=== PATIENT | female | born 1990 | race Caucasian/White ===

== ENCOUNTER → 2017-09-26 | Outpatient (REF) | payer OTHER ==
[2017-09-26 13:27] LABS: BASO # 0.1 10^3/uL (0.0-0.2); EOS # 0.1 10^3/uL (0.0-0.50); EOS % 1.2 % (0.0-3.0); HEMATOCRIT 37.1 % (36.0-47.0); HEMOGLOBIN 12.3 g/dl (12.0-16.0); IMMATURE GRANULOCYTE % 0.2 % (0-3.0); LYMPH # 3.3 10^3/uL (1.5-6.5); MEAN CORPUSCULAR HEMOGLOBIN 28.7 pg (27.0-33.0); MEAN CORPUSCULAR HGB CONC 33.2 g/dl (32.0-36.5); MEAN CORPUSCULAR VOLUME 86.7 fl (80.0-96.0); MONO # 0.8 10^3/uL (0.0-0.8); MONO % 9.2 % (0.0-5.0); NEUTROPHILS % 48.4 % (36.0-66.0); PLATELET COUNT, AUTOMATED 364 10^3/uL (150-450); RED BLOOD COUNT 4.28 10^6/uL (4.00-5.40); RED CELL DISTRIBUTION WIDTH 13.2 % (11.5-14.5); WHITE BLOOD COUNT 8.3 10^3/uL (4.0-10.0)
[2017-09-26 14:03] LABS: ALBUMIN 4.1 GM/DL (3.2-5.2); ALBUMIN/GLOBULIN RATIO 1.11 (1.00-1.93); ALKALINE PHOSPHATASE 51 U/L (45-117); ALT/SGPT 16 U/L (12-78); ANION GAP 4 MEQ/L (8-16); AST/SGOT 18 U/L (7-37); BILIRUBIN,TOTAL 0.5 MG/DL (0.2-1.0); BLOOD UREA NITROGEN 11 MG/DL (7-18); CALCIUM LEVEL 9.1 MG/DL (8.5-10.1); CARBON DIOXIDE LEVEL 30 MEQ/L (21-32); CHLORIDE LEVEL 105 MEQ/L (98-107); CREATININE FOR GFR 0.76 MG/DL (0.55-1.30); FREE T4 0.83 NG/DL (0.76-1.46); GLOMERULAR FILTRATION RATE > 60.0 (>60); GLUCOSE, FASTING 78 MG/DL (70-100); POTASSIUM SERUM 4.4 MEQ/L (3.5-5.1); SODIUM LEVEL 139 MEQ/L (136-145); TOTAL PROTEIN 7.8 GM/DL (6.4-8.2)
== END ==
LOC: M SFHCADAM 11:25
DX: R53.83 Other fatigue (principal)

== ENCOUNTER → 2017-10-03 | Outpatient (CLI) | payer OTHER | LOC: M RAD 15:31 | DX: R10.9 Unspecified abdominal pain (principal) ==

== ENCOUNTER → 2017-11-26 | Outpatient (CLI) | payer OTHER ==
[2017-11-26 19:14] LABS: CONTROL LINE HCG INT CTR LINE PRESENT; HCG, SERUM QUALITATIVE NEGATIVE (NEGATIVE)
== END ==
LOC: M SMT 14:39
DX: Z01.411 Encounter for gynecological examination (general) (routine) with abnormal findings (principal)
CPT/HCPCS: 84703

== ENCOUNTER → 2017-12-17 | Outpatient (REF) | payer OTHER ==
[2017-12-17 13:39] LABS: PROLACTIN 8.2 NG/ML
[2017-12-17 13:39] LABS: PROGESTERONE 0.7 NG/ML
[2017-12-17 13:51] LABS: FREE T4 0.77 NG/DL (0.76-1.46)
[2017-12-18 14:11] LABS: INSULIN LEVEL 40.5 uIU/mL (2.6-24.9)
[2017-12-21 10:13] LABS: 17 HYDROXY PROGESTERONE 29 ng/dL (.); DEHYDROEPIANDROSTERONE SULFATE 182.9 ug/dL (84.8-378.0); TESTOSTERONE FREE (DIRECT) 1.2 pg/mL (0.0-4.2)
== END ==
LOC: M LAB REF 12:43
DX: Z01.411 Encounter for gynecological examination (general) (routine) with abnormal findings (principal)
CPT/HCPCS: 83525

== ENCOUNTER 2018-01-03 10:24 | Day surgery (SDC) | payer OTHER ==
[2018-01-03] MEDS: NS 1,000 ML IV (10:34)
[2018-01-03] MEDS ORDERED: PROPOFOL 200 MG/20 ML VIAL As Ordered (11:51)
[2018-01-03] MEDS ORDERED: LIDOCAINE 2% INJ 100 MG/5 ML SDV (FOR ANES.) As Ordered (11:51)
== END 2018-01-03 12:31 | disposition home or self-care (01) ==
LOC: M OPP 10:24
DX: K64.4 Residual hemorrhoidal skin tags (principal); R10.84 Generalized abdominal pain; K62.89 Other specified diseases of anus and rectum; R10.13 Epigastric pain; R11.0 Nausea; Z96.0 Presence of urogenital implants; Z87.42 Personal history of other diseases of the female genital tract; Z80.41 Family history of malignant neoplasm of ovary; Z84.1 Family history of disorders of kidney and ureter; Z83.79 Family history of other diseases of the digestive system
CPT/HCPCS: 45378

== ENCOUNTER → 2018-01-17 | Outpatient (CLI) | payer OTHER | LOC: M ADAMS 18:24 | DX: M25.561 Pain in right knee (principal) | CPT/HCPCS: 73564 ==

== ENCOUNTER → 2018-03-29 | Outpatient (REF) | payer OTHER ==
[2018-03-29 21:19] LABS: CHLAMYDIA DNA AMPLIFICATION NEGATIVE (NEGATIVE); GC DNA AMPLIFICATION NEGATIVE (NEGATIVE)
== END ==
LOC: M SFHCADAM 19:06
DX: R10.2 Pelvic and perineal pain (principal)
CPT/HCPCS: 87591

== ENCOUNTER → 2018-05-31 | Outpatient (REF) | payer OTHER ==
[2018-05-31 19:33] LABS: BASO # 0.1 10^3/uL (0.0-0.2); BASO % 0.7 % (0.0-1.0); EOS # 0.1 10^3/uL (0.0-0.50); EOS % 1.3 % (0.0-3.0); HEMATOCRIT 39.1 % (36.0-47.0); HEMOGLOBIN 12.7 g/dl (12.0-15.5); IMMATURE GRANULOCYTE % 0.3 % (0-3.0); LYMPH # 3.6 10^3/uL (1.5-6.5); LYMPH % 35.5 % (24.0-44.0); MEAN CORPUSCULAR HGB CONC 32.5 g/dl (32.0-36.5); MEAN CORPUSCULAR VOLUME 89.3 fl (80.0-96.0); MONO # 0.8 10^3/uL (0.0-0.8); NEUTROPHILS # 5.5 10^3/uL (1.8-7.7); NEUTROPHILS % 54.2 % (36.0-66.0); PLATELET COUNT, AUTOMATED 369 10^3/uL (150-450); RED BLOOD COUNT 4.38 10^6/uL (4.00-5.40); RED CELL DISTRIBUTION WIDTH 13.2 % (11.5-14.5); WHITE BLOOD COUNT 10.2 10^3/uL (4.0-10.0)
[2018-06-03 08:51] LABS: CONTROL LINE MONO RF C INT CTR LINE PRESENT; MONO REFLEX EBV COMP NEGATIVE (NEGATIVE)
[2018-06-05 00:08] LABS: EBV VIRAL CAPSID AG IgG 42.7 U/mL (0.0-17.9)
[2018-06-05 00:08] LABS: EBV VIRAL CAPSID AG IgM <36.0 U/mL (0.0-35.9)
== END ==
LOC: M LAB REF 18:53
DX: R59.0 Localized enlarged lymph nodes (principal); R53.83 Other fatigue

== ENCOUNTER 2018-11-11 11:12 | Emergency (ER) | payer OTHER ==
[~2018-11-11] VITALS: Ht 157.5 cm; Wt 53.6 kg
[~2018-11-11 11:12] MED LIST: ACET1TAB15 PO; AUGM875T27 PO; BACT800T5 PO; FLAG500T PO; MAPA500T17 PO; MIRA3350 PO; ONDA-227 PO; OXYC1TAB23 PO; PRENTAB74 PO
[2018-11-11 11:13] VITALS: BP 102/65
[2018-11-11] MEDS ORDERED: XALA0.007 OU (11:22)
[2018-11-11] MEDS ORDERED: BACITRACIN OINT 30GM TOP ONE (11:45)
[2018-11-11] MEDS ORDERED: ADACEL/BOOSTRIX VACCINE (DIPHTH/PERTUSS/ACELL/TETANUS)0.5ML SYR (90715) IM ONE (11:45)
[2018-11-11] MEDS ORDERED: IBUP80TA PO (11:45)
[2018-11-11] MEDS ORDERED: ACETAMINOPHEN 500 MG TAB PO ONE (11:45)
== END 2018-11-11 12:08 | disposition home or self-care (01) ==
LOC: M ED 11:12
DX: S61.431A Puncture wound without foreign body of right hand, initial encounter (principal); W26.8XXA Contact with other sharp object(s), not elsewhere classified, initial encounter; Y92.018 Other place in single-family (private) house as the place of occurrence of the external cause

== ENCOUNTER 2018-12-20 13:40 | Emergency (ER) | payer OTHER ==
[~2018-12-20] VITALS: Ht 157.5 cm; Wt 55.9 kg
[~2018-12-20 13:40] MED LIST changes: +IBUP80TA PO; +XALA0.007 OU
[2018-12-20] MEDS ORDERED: KETOROLAC 30 MG/ML VIAL (J1885) IV ONE (14:00)
[2018-12-20] MEDS ORDERED: ONDANSETRON 4MG/2ML VIAL (J2405) IV ONE (14:00)
--- NOTE | 2018-12-20 14:17 | REP ---
Clinical: Flank pain. Technique: Axial noncontrast images from the lung bases to the pubic symphysis with coronal and sagittal re-formations. Comparison: 04/27/2016. Findings: Lung bases are clear. Liver, spleen, pancreas, gallbladder, bilateral adrenal glands and kidneys are normal for noncontrast evaluation. No hydroureteronephrosis, perinephric stranding, intrarenal or obstructing ureteral calculi identified. The enteric system is without obstruction or acute inflammatory process. Normal terminal ileum and appendix identified in the right lower quadrant. Pelvis demonstrates normal bladder and age-appropriate uterus/adnexa. Small amount of free fluid in the posterior cul-de-sac likely physiologic and related to menstrual cycle. No free air. No adenopathy. Abdominal aorta without aneurysm. Musculoskeletal structures are intact. Impression: No acute abdominopelvic pathology appreciated. Normal appearance to the urinary tract system. Electronically Signed by Gabriel Lopez MD 12/20/2018 02:09 P
[2018-12-20 14:23] LABS: BASO # 0.1 10^3/uL (0.0-0.2); BASO % 0.3 % (0.0-1.0); EOS # 0.1 10^3/uL (0.0-0.50); EOS % 0.6 % (0.0-3.0); HEMATOCRIT 36.6 % (36.0-47.0); HEMOGLOBIN 12.2 g/dl (12.0-15.5); LYMPH # 2.7 10^3/uL (1.5-6.5); LYMPH % 17.4 % (24.0-44.0); MEAN CORPUSCULAR HEMOGLOBIN 29.4 pg (27.0-33.0); MEAN CORPUSCULAR HGB CONC 33.3 g/dl (32.0-36.5); MEAN CORPUSCULAR VOLUME 88.2 fl (80.0-96.0); MONO # 1.2 10^3/uL (0.0-0.8); MONO % 7.6 % (0.0-5.0); NEUTROPHILS # 11.4 10^3/uL (1.8-7.7); NEUTROPHILS % 73.8 % (36.0-66.0); PLATELET COUNT, AUTOMATED 305 10^3/uL (150-450); RED BLOOD COUNT 4.15 10^6/uL (4.00-5.40); WHITE BLOOD COUNT 15.4 10^3/uL (4.0-10.0)
[2018-12-20] MEDS ORDERED: ACETAMINOPHEN 500 MG TAB PO ONE (14:30)
[2018-12-20] MEDS ORDERED: MORPHINE 4 MG/ML 1ML VIAL/SYRINGE (J2270) IV ONE (14:45)
[2018-12-20 14:46] LABS: ALBUMIN 4.1 GM/DL (3.2-5.2); ALT/SGPT 14 U/L (12-78); BILIRUBIN,DIRECT 0.1 MG/DL (0.0-0.2); BILIRUBIN,TOTAL 0.4 MG/DL (0.2-1.0); BLOOD UREA NITROGEN 14 MG/DL (7-18); CALCIUM LEVEL 9.7 MG/DL (8.5-10.1); CARBON DIOXIDE LEVEL 25 MEQ/L (21-32); CHLORIDE LEVEL 105 MEQ/L (98-107); CREATININE FOR GFR 0.98 MG/DL (0.55-1.30); GLOMERULAR FILTRATION RATE > 60.0 (>60); GLUCOSE, FASTING 88 MG/DL (70-100); LIPASE 104 U/L (73-393); POTASSIUM SERUM 3.5 MEQ/L (3.5-5.1); SODIUM LEVEL 138 MEQ/L (136-145); TOTAL PROTEIN 8.1 GM/DL (6.4-8.2)
[2018-12-20] MEDS ORDERED: CIPR-249 PO (14:51)
[2018-12-20] MEDS ORDERED: NORC1TAB7 PO (14:52)
[2018-12-20] MEDS ORDERED: ONDA4TAB6 PO (14:53)
[2018-12-20] MEDS ORDERED: cefTRIAXone SOD 1 GM in D5W MINI-BAG PLUS 50 ML IV ONE (15:00)
[2018-12-20 15:48] VITALS: BP 100/57
== END 2018-12-20 15:49 | disposition home or self-care (01) ==
LOC: M ED 13:40
DX: N10 Acute pyelonephritis (principal); Z87.448 Personal history of other diseases of urinary system; Z79.899 Other long term (current) drug therapy
CPT/HCPCS: 74176; 80048; 80076; 81001; 83690; 85025; 87088; 87186; 96365; 96375; 99284; J0696; J1885; J2270; J2405

== ENCOUNTER 2018-12-25 10:23 | Inpatient (IN) | payer OTHER ==
[~2018-12-25] VITALS: Ht 157.5 cm; Wt 55.4 kg
[~2018-12-25 10:23] MED LIST changes: +CIPR-249 PO; +NORC1TAB7 PO; +ONDA4TAB6 PO
[2018-12-25] MEDS ORDERED: IBUPROFEN 400 MG TAB PO PRN (11:00)
[2018-12-25 11:37] LABS: HEMATOCRIT 37.8 % (36.0-47.0); HEMOGLOBIN 12.3 g/dl (12.0-15.5); MEAN CORPUSCULAR HEMOGLOBIN 28.7 pg (27.0-33.0); MEAN CORPUSCULAR HGB CONC 32.5 g/dl (32.0-36.5); MEAN CORPUSCULAR VOLUME 88.1 fl (80.0-96.0); PLATELET COUNT, AUTOMATED 384 10^3/uL (150-450); RED BLOOD COUNT 4.29 10^6/uL (4.00-5.40); WHITE BLOOD COUNT 9.6 10^3/uL (4.0-10.0)
[2018-12-25] MEDS ORDERED: cefTRIAXone SOD 1 GM in D5W MINI-BAG PLUS 50 ML IV SCH (12:00)
[2018-12-25] MEDS: ACETAMINOPHEN TAB 650MG DOSE (2X325MG) PO PRN ×2 (12:05→21:48)
[2018-12-25 12:09] VITALS: BP 107/66
[2018-12-25] MEDS ORDERED: ONDANSETRON 4MG/2ML VIAL (J2405) IV PRN (12:15)
[2018-12-25] MEDS ORDERED: oxyCODONE 5MG TAB PO PRN (12:15)
[2018-12-25 12:27] LABS: ALBUMIN 3.6 GM/DL (3.2-5.2); ALT/SGPT 18 U/L (12-78); BILIRUBIN,TOTAL 0.4 MG/DL (0.2-1.0); BLOOD UREA NITROGEN 11 MG/DL (7-18); CALCIUM LEVEL 9.8 MG/DL (8.5-10.1); CARBON DIOXIDE LEVEL 27 MEQ/L (21-32); CHLORIDE LEVEL 104 MEQ/L (98-107); CREATININE FOR GFR 0.78 MG/DL (0.55-1.30); GLOMERULAR FILTRATION RATE > 60.0 (>60); GLUCOSE, FASTING 85 MG/DL (70-100); POTASSIUM SERUM 4.3 MEQ/L (3.5-5.1); SODIUM LEVEL 140 MEQ/L (136-145)
[2018-12-25 12:35] LABS: URINE PREG TEST NEGATIVE (NEGATIVE)
[2018-12-25] MEDS ORDERED: CEFD1CAP8 PO (12:36)
[2018-12-25 12:42] LABS: APPEARANCE, URINE HAZY (CLEAR); BACTERIA, URINE AUTO NEGATIVE (NEGATIVE); BILIRUBIN, URINE AUTO NEGATIVE (NEGATIVE); BLOOD, URINE BLOOD NEGATIVE (NEGATIVE); COLOR, URINE YELLOW (YELLOW); GLUCOSE, URINE (UA) AUTO NEGATIVE (NEGATIVE); KETONE, URINE AUTO NEGATIVE (NEGATIVE); LEUKOCYTE ESTERASE, URINE AUTO TRACE (NEGATIVE); NITRITE, URINE AUTO NEGATIVE (NEGATIVE); PROTEIN, URINE AUTO NEGATIVE (NEGATIVE); RBC, URINE AUTO 1 /HPF (0-3); SPECIFIC GRAVITY URINE AUTO 1.015 (1.002-1.035); SQUAMOUS EPITHELIAL CELL UR AU 7 /HPF (0-6); UROBILINOGEN, URINE AUTO 0.2 mg/dL (0.0-2.0); WBC, URINE AUTO 3 /HPF (0-3)
[2018-12-25] MEDS: NS 1,000 ML IV SCH ×2 (12:44→21:48)
[2018-12-25 12:46] LABS: C REACTIVE PROTEIN QUANTITATIV 9.57 MG/DL (0.00-0.30)
[2018-12-25 13:00] LABS: ERYTHROCYTE SEDIMENTATION RATE 84 mm/hr (0-20)
[2018-12-25 15:10] VITALS: BP 84/32
[2018-12-25] MEDS ORDERED: NS 500 ML IV ONE ×2 (15:30)
[2018-12-25 15:50] VITALS: BP 98/64
[2018-12-25] MEDS: PROMETHAZINE 25 MG TAB PO PRN (16:08)
[2018-12-25] MEDS: oxyCODONE 5MG TAB PO PRN ×2 (16:09→22:17)
[2018-12-25 17:31] VITALS: BP 114/70
--- NOTE | 2018-12-25 17:35 | REP ---
Clinical: Pyelonephritis with persistent fever. Technique: Real time arango scale and color evaluation using curved array transducer. Findings: The right kidney demonstrates mild hydronephrosis with small amounts of echogenic debris identified in the calyces consistent with the given diagnosis of pyelonephritis. The kidney demonstrates normal reniform shape, size, echogenicity and no evidence for perinephric stranding or fluid. Right kidney measures 10.9 x 6.2 x 4.8 cm. The left kidney is normal in appearance and without hydronephrosis, nephrolithiasis, cystic or renal mass lesion. No perinephric fluid collection. Left kidney measures 10.9 x 5.9 x 6.3 cm. The bladder is normal in appearance and measures 14.3 x 12.1 x 10.1 cm. Impression: Mild right-sided hydronephrosis and small amounts of debris within the calyces consistent with the given history of pyelonephritis. No obvious nephrolithiasis. Electronically Signed by Gabriel Lopez MD 12/25/2018 05:27 P
--- NOTE | 2018-12-25 17:58 | SMCUROLCON ---
Urology Consultation General Date of Consultation 12/25/18 Reason For Consultation This patient is seen for Pyelonephritis. History of Present Illness This is a 28 y/o F w/ a PMH significant for recurrent UTIs, admitted to the hospital for pyelonephritis. She started having left flank and abd pain as well as dysuria almost 1 wk ago. She came for evaluation at [facility] and was diagnosed w/ an E coli UTI. A noncontrast CT A/P at that time was unremarkable. She was sent home on cipro and noted that her symptoms continued to get worse, prompting her to go to [place] [address] A/P w/ IV contrast was done there and notable for what appeared to be lobar nephronia versus an abscess in the lef t kidney. She was sent home on cefdinir and noted that her flank pain worsened and she started developing fevers and chills. She notes that during this time her dysuria improved. Due to her worsening in symptoms she was admitted to the hospital by her PCP today. She notes that she has had pyelonephritis once before several years ago and she had a stent placed at that time. She normally gets 2-3 nonfebrile UTIs per year and they typically resolve w/ a course of oral antibiotics. She notes that what she is experiencing now is unusual for her. Past Medical History Medical History UTIs Surgical Hstory cystoscopy w/ stent placement Medications Current Medications Current Medications Acetaminophen (Tylenol Tab) 650 mg Q4HP PRN PO PAIN OR FEVER Last administered on 12/25/18at 12:05; Start 12/25/18 at 11:00 Ceftriaxone Sodium 1 gm/ Dextrose 50 ml @ 100 mls/hr Q24H IV Last administered on 12/25/18at 12:04; Start 12/25/18 at 12:00 Ibuprofen (Advil) 400 mg Q6HP PRN PO PAIN; Start 12/25/18 at 11:00; Stop 12/25/18 at 12:17; Status DC Latanoprost (Xalatan 0.005% Op Soln) 1 drop QHS OU ; Start 12/25/18 at 21:00 Ondansetron HCl (ZOFRAN INJection) 4 mg Q6HP PRN IV NAUSEA OR VOMITING Last administered on 12/25/18at 12:44; Start 12/25/18 at 12:15 Oxycodone HCl (Roxicodone, Oxyir) 5 mg Q6HP PRN PO PAIN Last administered on 12/25/18at 12:44; Start 12/25/18 at 12:15 Oxycodone HCl (Roxicodone, Oxyir) 10 mg Q6HP PRN PO SEVERE PAIN (PS 8-10) Last administered on 12/25/18at 16:09; Start 12/25/18 at 16:00 Promethazine HCl (Phenergan) 25 mg Q8HP PRN PO NAUSEA Last administered on 12/25/18at 16:08; Start 12/25/18 at 15:45 Sodium Chloride 1,000 ml @ 100 mls/hr Q10H IV Last administered on 12/25/18at 12:44; Start 12/25/18 at 12:15 Allergies Allergies: Coded Allergies: No Known Drug Allergies (Verified Allergy, Unknown, 11/11/18) Review of Systems Constitutional: Reports: Fever, Chills Skin: Denies: Rash, Lesions, Breakdown, Nail Changes Pulmonary: Denies: Dyspnea, Cough Cardiovascular: Denies Chest Pain, Denies Palpitations Gastrointestinal: Reports: Abdominal Pain (left upper abdominal pain) Genitourinary: Denies: Dysuria, Frequency, Hematuria Musculoskeletal: Reports: Back Pain (severe left flank pain) Psych: Reports: Mood Normal Physical Examination General Exam: Alert, Cooperative Chest Exam: Normal air movement Heart Exam: Regular Rhythm Abdomen Exam: Soft, Tenderness (LUQ tenderness) Skin Exam: Nl turgor and temperature Neuro Exam: Normal Speech Psych Exam: Mental status NL Vital Signs/I&O Vital Signs Date Time Temp Pulse Resp B/P (MAP) Pulse Ox O2 Delivery O2 Flow Rate FiO2 12/25/18 16:09 16 12/25/18 15:50 98/64 (75) 12/25/18 15:10 97.6 62 97 Laboratory Data 24H Labs Laboratory Tests 2 12/25/18 11:17: Nucleated Red Blood Cells % (auto) 0.0, Erythrocyte Sedimentation Rate 84H, Anion Gap 9, Glomerular Filtration Rate > 60.0, Blood Urea Nitrogen 11, Creatinine 0.78, Sodium Level 140, Potassium Level 4.3, Chloride Level 104, Ca rbon Dioxide Level 27, Calcium Level 9.8, Aspartate Amino Transf (AST/SGOT) 8, Alanine Aminotransferase (ALT/SGPT) 18, Alkaline Phosphatase 58, Total Bilirubin 0.4, Total Protein 8.0, Albumin 3.6, C-Reactive Protein, Quantitative 9.57H, Albumin/Globulin Ratio 0.82L 12/25/18 12:20: Urine Appearance HAZY, Urine Color YELLOW, Urine pH 7.0, Urine Specific [place] 1.015, Urine Protein NEGATIVE, Urine Glucose (UA) NEGATIVE, Urine Ketones NEGATIVE, Urine Urobilinogen 0.2, Urine Bilirubin NEGATIVE, Urine Leukocyte Esterase TRACEH, Urine Blood NEGATIVE, Urine Nitrite NEGATIVE, Urine WBC (Auto) 3, Urine RBC (Auto) 1, Urine Hyaline Casts (Auto) 0, Urine Bacteria (Auto) NEGATIVE, Urine Squamous Epithelial Cells 7, Urine Sperm (Auto) , Urine Test NEGATIVE 12/25/18 15:31: Lactic Acid Level 0.9 CBC/BMP Laboratory Tests 12/25/18 11:17 Red Blood Count 4.29, Mean Corpuscular Volume 88.1, Mean Corpuscular Hemoglobin 28.7, Mean Corpuscular Hemoglobin Concent 32.5, Red Cell Distribution Width 13.8, Calcium Level 9.8, Aspartate Amino Transf (AST/SGOT) 8, Alanine Aminotransferase (ALT/SGPT) 18, Alkaline Phosphatase 58, Total Bilirubin 0.4, Total Protein 8.0, Albumin 3.6 Microbiology Microbiology 12/25/18 Urine Culture, Received Pending Assessment This is a 28 y/o F admitted for left pyelonephritis and possible renal abscess. A renal US was obtained and just resulted. It was notable for mild right hydronephrosis but no abnormalities on the left. This was discussed w/ Dr. Lopez. Given the absence of findings on the left, she likely has a bad case of pyelonephritis. Her pain should improve w/ continued antibiotics. Plan - recommend continue IV antibiotics until flank pain improves - if she clinically worsens while on culture-specific antibiotics, would repeat CT scan - no urologic intervention required at this time PANFILO BELTRAN MD December 25, 2018 16:43
[2018-12-25 20:30] VITALS: BP 107/66
[2018-12-25] MEDS: LATANOPROST 0.005% OPHTH SOLN 2.5 ML OU SCH (21:47)
[2018-12-25 22:30] VITALS: BP 111/61
[2018-12-26] MEDS: PROMETHAZINE 25 MG TAB PO PRN ×2 (00:28→18:42)
[2018-12-26 00:30] VITALS: BP 100/52
[2018-12-26 02:30] VITALS: BP 102/58
[2018-12-26 06:22] LABS: HEMATOCRIT 33.5 % (36.0-47.0); HEMOGLOBIN 10.8 g/dl (12.0-15.5); MEAN CORPUSCULAR HEMOGLOBIN 28.6 pg (27.0-33.0); MEAN CORPUSCULAR HGB CONC 32.2 g/dl (32.0-36.5); MEAN CORPUSCULAR VOLUME 88.9 fl (80.0-96.0); PLATELET COUNT, AUTOMATED 357 10^3/uL (150-450); RED BLOOD COUNT 3.77 10^6/uL (4.00-5.40); WHITE BLOOD COUNT 8.1 10^3/uL (4.0-10.0)
[2018-12-26] MEDS: oxyCODONE 5MG TAB PO PRN ×3 (06:23→19:58)
[2018-12-26 06:30] VITALS: BP 112/80
[2018-12-26 06:50] LABS: ALBUMIN 2.8 GM/DL (3.2-5.2); ALT/SGPT 17 U/L (12-78); BILIRUBIN,TOTAL 0.2 MG/DL (0.2-1.0); BLOOD UREA NITROGEN 8 MG/DL (7-18); CALCIUM LEVEL 8.8 MG/DL (8.5-10.1); CARBON DIOXIDE LEVEL 29 MEQ/L (21-32); CHLORIDE LEVEL 108 MEQ/L (98-107); CREATININE FOR GFR 0.89 MG/DL (0.55-1.30); GLOMERULAR FILTRATION RATE > 60.0 (>60); GLUCOSE, FASTING 86 MG/DL (70-100); SODIUM LEVEL 142 MEQ/L (136-145)
[2018-12-26] MEDS ORDERED: HYDR-3713 PO (07:41)
[2018-12-26] MEDS ORDERED: ONDA4TAB6 PO (07:41)
[2018-12-26] MEDS: NS 1,000 ML IV SCH ×2 (08:36→17:23)
[2018-12-26] MEDS: MORPHINE 4 MG/ML 1ML VIAL/SYRINGE (J2270) IV PRN ×2 (09:24→17:43)
--- NOTE | 2018-12-26 09:31 | IPNPDOC ---
Subjective Date Seen The patient was seen on 12/26/18. Subjective Chief Complaint/HPI continued left flank and LUQ pain and headache. Constitutional: Denies: Chills ENT: Reports: Head Aches; Denies: Dysphagia Pulmonary: Denies: Dyspnea, Cough Cardiovascular: Denies: Chest Pain, Palpitations Gastrointestinal: Reports: Nausea; Denies: Vomiting, Diarrhea Genitourinary: Denies: Dysuria Neurological: Denies: Weakness Psych: Reports: Anxiety Objective Physical Examination General Exam: Positive: Alert, Cooperative, Moderate Distress (left flank pain and headache) Eye Exam: Positive: PERRLA ENT Exam: Positive: Atraumatic Neck Exam: Positive: Supple; Negative: thyromegaly Chest Exam: Positive: Clear to auscultation, Normal air movement Heart Exam: Positive: Rate Normal; Negative: Murmurs Abdomen Exam: Positive: Normal bowel sounds, Tenderness (left upper quadrant a nd left flank.); Negative: Hepatospenomegaly Extremity Exam: Negative: Clubbing Skin Exam: Positive: Nl turgor and temperature Neuro Exam: Positive: Normal Speech Psych Exam: Positive: Mental status NL Assessment /Plan Problems (1) Pyelonephritis Status: Acute Response to Treatment: Stable, Uncontrolled Discussed With: Supervisor [employer] Problem Text: still has a lot of left flank pain but no fever, no significant pyuria noted on admission, and no leukocytosis. inflammatory markers are elevated (CRP and ESR). adequately hydrated based on BUN. Headache worse since stopping ibuprofen. will increase ceftriaxone dose. per Dr. Oconnor recommendation if not improving, repeat CT (with contrast) as opposed to U/S. Renal infarction might look similar (hypodense areas in left kidney noted on contrast CT from [place]). Will check lupus anticoagulant and do echo. (2) Headache Status: Acute Response to Treatment: Worse Problem Text: possible side effect of zofran. sleep impairment due to pyelo pain another possibility as is toxic effect of her infection. will stop zofran, add meloxicam whose anti-inflammatory effect may help SPANGLER as well as renal pain. not contraindicated because there is no known vascular disease (no HTN, Dm, vasculitis) that the NSAID might worsen. will monitor for effect. if not working for SPANGLER then resume ibuprofen instead Plan/VTE VTE Prophylaxis Ordered?: Yes Plan Anticipated Discharge: Home VS, I&O, 24H, Fishbone Vital Signs/I&O Vital Signs Date Time Temp Pulse Resp B/P (MAP) Pulse Ox O2 Delivery O2 Flow Rate FiO2 12/26/18 07:30 20 12/26/18 06:30 112/80 (91) 12/26/18 06:00 98.3 63 99 I&O- Last 24 Hours up to 6 AM 12/26/18 06:00 Intake Total 2440 ml Output Total 1150 ml Balance 1290 ml Laboratory Data 24H LABS Laboratory Tests 2 12/25/18 11:17: Nucleated Red Blood Cells % (auto) 0.0, Erythrocyte Sedimentation Rate 84H, Anion Gap 9, Glomerular Filtration Rate > 60.0, Blood Urea Nitrogen 11, Cr eatinine 0.78, Sodium Level 140, Potassium Level 4.3, Chloride Level 104, Carbon Dioxide Level 27, Calcium Level 9.8, Aspartate Amino Transf (AST/SGOT) 8, Alanine Aminotransferase (ALT/SGPT) 18, Alkaline Phosphatase 58, Total Bilirubin 0.4, Total Protein 8.0, Albumin 3.6, C-Reactive Protein, Quantitative 9.57H, Albumin/Globulin Ratio 0.82L 12/25/18 12:20: Urine Appearance HAZY, Urine Color YELLOW, Urine pH 7.0, Urine Specific [place] 1.015, Urine Protein NEGATIVE, Urine Glucose (UA) NEGATIVE, Urine Ketones NEGATIVE, Urine Urobilinogen 0.2, Urine Bilirubin NEGATIVE, Urine Leukocyte Esterase TRACEH, Urine Blood NEGATIVE, Urine Nitrite NEGATIVE, Urine WBC (Auto) 3, Urine RBC (Auto) 1, Urine Hyaline Casts (Auto) 0, Urine Bacteria (Auto) NEGATIVE, Urine Squamous Epithelial Cells 7, Urine Sperm (Auto) , Urine Test NEGATIVE 12/25/18 15:31: Lactic Acid Level 0.9 12/25/18 18:50: Lactic Acid Level 0.9 12/26/18 06:03: Nucleated Red Blood Cells % (auto) 0.0, Anion Gap 5L, Glomerular Filtration Rate > 60.0, Blood Urea Nitrogen 8, Creatinine 0.89, Sodium Level 142, Potassium Level 4.0, Chloride Level 108H, Carbon Dioxide Level 29, Calcium Level 8.8, Aspartate Amino Transf (AST/SGOT) 11, Alanine Aminotransferase (ALT/SGPT) 17, Alkaline Phosphatase 57, Total Bilirubin 0.2, Total Protein 7.0, Albumin 2.8#L, Albumin/Globulin Ratio 0.67L CBC/BMP Laboratory Tests 12/25/18 11:17 Red Blood Count 4.29, Mean Corpuscular Volume 88.1, Mean Corpuscular Hemoglobin 28.7, Mean Corpuscular Hemoglobin Concent 32.5, Red Cell Distribution Width 13.8, Calcium Level 9.8, Aspartate Amino Transf (AST/SGOT) 8, Alanine Aminotransferase (ALT/SGPT) 18, Alkaline Phosphatase 58, Total Bilirubin 0.4, T otal Protein 8.0, Albumin 3.6 12/26/18 06:03 Red Blood Count 3.77 L, Mean Corpuscular Volume 88.9, Mean Corpuscular Hemoglobin 28.6, Mean Corpuscular Hemoglobin Concent 32.2, Red Cell Distribution Width 13.9, Calcium Level 8.8, Aspartate Amino Transf (AST/SGOT) 11, Alanine Ami notransferase (ALT/SGPT) 17, Alkaline Phosphatase 57, Total Bilirubin 0.2, Total Protein 7.0, Albumin 2.8 #L Microbiology Microbiology 12/25/18 Urine Culture, Received Pending Roger Love MD December 26, 2018 09:31
[2018-12-26] MEDS: PANTOPRAZOLE 40MG TAB (PROTONIX) PO SCH (10:47)
[2018-12-26] MEDS: MELOXICAM (MOBIC) 7.5 MG TAB PO SCH (10:47)
[2018-12-26] MEDS: ENOXAPARIN 40 MG/0.4 ML SYRINGE (J1650) SC SCH (10:48)
[2018-12-26 11:02] LABS: AMORPHOUS SEDIMENT SMALL (NEGATIVE); APPEARANCE, URINE CLOUDY (CLEAR); BACTERIA, URINE AUTO 1+ (NEGATIVE); BILIRUBIN, URINE AUTO NEGATIVE (NEGATIVE); BLOOD, URINE BLOOD 3+ (NEGATIVE); COLOR, URINE YELLOW (YELLOW); GLUCOSE, URINE (UA) AUTO NEGATIVE (NEGATIVE); KETONE, URINE AUTO NEGATIVE (NEGATIVE); LEUKOCYTE ESTERASE, URINE AUTO 2+ (NEGATIVE); MUCUS, URINE SMALL (NEGATIVE); NITRITE, URINE AUTO NEGATIVE (NEGATIVE); PROTEIN, URINE AUTO NEGATIVE (NEGATIVE); RBC, URINE AUTO 4 /HPF (0-3); SPECIFIC GRAVITY URINE AUTO 1.008 (1.002-1.035); SQUAMOUS EPITHELIAL CELL UR AU 22 /HPF (0-6); UROBILINOGEN, URINE AUTO 0.2 mg/dL (0.0-2.0); WBC, URINE AUTO 12 /HPF (0-3)
[2018-12-26] MEDS: cefTRIAXone SOD 2 GM in D5W MINI-BAG PLUS 50 ML IV SCH (12:35)
[2018-12-26 14:00] VITALS: BP 109/65
--- NOTE | 2018-12-26 16:19 | ECHO ---
DATE OF STUDY: 12/26/2018 REFERRING PHYSICIAN: Dr. Roger Love INDICATION: Sepsis. HEIGHT: 62 inches WEIGHT: 55.4 kg 2-D MEASUREMENTS: LVOT: 1.8 cm Left atrium: 2.3 cm Aortic root: 2.5 cm Ventricular septum: 0.64 cm Posterior wall: 0.65 cm Left ventricle diastole: 4.4 cm DOPPLER MEASUREMENTS: Aortic valve velocity: 131 cm/s LVOT velocity: 106 cm/s LVOT VTI: 21.2 cm Mitral E velocity: 97.2 cm/s Mitral A velocity: 53.3 cm/s Trace tricuspid regurgitation Pulmonary artery systolic pressure: 21 mmHg (by pulmonary acceleration time) MITRAL ANNULAR TISSUE DOPPLER: E prime septal: 11.9 cm/s E prime lateral: 23.6 cm/s DESCRIPTION: Rhythm was sinus. Image quality was good. This is a 2-D, M-mode, color flow Doppler and pulsed wave Doppler examination and included mitral annular tissue Doppler. CONCLUSIONS: 1. Normal echocardiogram-Doppler. 2. No vegetations. 3. Normal left ventricle internal dimensions and wall thickness. Normal regional LV wall motion and wall thickening. Normal LV systolic function. Left ventricular ejection fraction (LVEF) 65% by visual estimate. Normal LV diastolic function.
[2018-12-26] MEDS: LATANOPROST 0.005% OPHTH SOLN 2.5 ML OU SCH (19:58)
[2018-12-26 22:00] VITALS: BP 106/63
[2018-12-27] MEDS: oxyCODONE 5MG TAB PO PRN ×2 (04:27→12:13)
[2018-12-27] MEDS: NS 1,000 ML IV SCH ×2 (05:06→12:12)
[2018-12-27 06:00] VITALS: BP 105/63
[2018-12-27 06:28] LABS: HEMATOCRIT 31.2 % (36.0-47.0); HEMOGLOBIN 10.2 g/dl (12.0-15.5); MEAN CORPUSCULAR HEMOGLOBIN 29.6 pg (27.0-33.0); MEAN CORPUSCULAR HGB CONC 32.7 g/dl (32.0-36.5); MEAN CORPUSCULAR VOLUME 90.4 fl (80.0-96.0); PLATELET COUNT, AUTOMATED 352 10^3/uL (150-450); RED BLOOD COUNT 3.45 10^6/uL (4.00-5.40)
[2018-12-27 06:50] LABS: ALBUMIN 2.7 GM/DL (3.2-5.2); ALT/SGPT 16 U/L (12-78); BILIRUBIN,TOTAL 0.1 MG/DL (0.2-1.0); BLOOD UREA NITROGEN 6 MG/DL (7-18); C REACTIVE PROTEIN QUANTITATIV 3.14 MG/DL (0.00-0.30); CALCIUM LEVEL 8.5 MG/DL (8.5-10.1); CARBON DIOXIDE LEVEL 29 MEQ/L (21-32); CHLORIDE LEVEL 109 MEQ/L (98-107); CREATININE FOR GFR 0.78 MG/DL (0.55-1.30); GLOMERULAR FILTRATION RATE > 60.0 (>60); GLUCOSE, FASTING 89 MG/DL (70-100); POTASSIUM SERUM 3.9 MEQ/L (3.5-5.1); SODIUM LEVEL 141 MEQ/L (136-145); TOTAL PROTEIN 6.6 GM/DL (6.4-8.2)
[2018-12-27] MEDS: ENOXAPARIN 40 MG/0.4 ML SYRINGE (J1650) SC SCH (09:00)
[2018-12-27] MEDS: PANTOPRAZOLE 40MG TAB (PROTONIX) PO SCH (09:00)
[2018-12-27] MEDS ORDERED: KETOROLAC 30 MG/ML VIAL (J1885) IV PRN (09:00)
[2018-12-27] MEDS: MELOXICAM (MOBIC) 7.5 MG TAB PO SCH (09:00)
[2018-12-27] MEDS: MORPHINE 4 MG/ML 1ML VIAL/SYRINGE (J2270) IV PRN (09:01)
--- NOTE | 2018-12-27 09:09 | IPNPDOC ---
Subjective Date Seen The patient was seen on 12/27/18. Subjective Chief Complaint/HPI Continues to c/o left CVA pain. No further f/c. Still has nausea - taking liquids well, but not eating solid food. Constitutional: Denies: Chills, Fever Pulmonary: Denies: Dyspnea, Cough Cardiovascular: Denies: Chest Pain Gastrointestinal: Reports: Nausea, Vomiting, Abdominal Pain; Denies: Diarrhea, Constipation Genitourinary: Reports: Other Symptoms; Denies: Dysuria, Hematuria Objective Physical Examination General Exam: Positive: Alert, Cooperative, No Acute Distress Chest Exam: Positive: Clear to auscultation, Normal air movement; Negative: Rales, Rhonchi, Wheezing Heart Exam: Positive: Rate Normal, Regular Rhythm; Negative: Murmurs Abdomen Exam: Positive: Normal bowel sounds, Tenderness (left upper quadrant and left flank. Tender in CVA. No tendernes over spinous processes); Negative: Hepatospenomegaly Extremity Exam: Negative: Clubbing Skin Exam: Positive: Nl turgor and temperature Neuro Exam: Positive: Normal Speech Psych Exam: Positive: Mental status NL Assessment /Plan Problems (1) Pyelonephritis Status: Acute Response to Treatment: Stable, Uncontrolled Discussed With: Cash[employer] Problem Text: 12/27 - Still with pain and tenderness in L CVA and LLQ. No further fever. no significant pyuria noted on admission, and no leukocytosis. inflammatory markers are elevated (CRP and ESR). adequately hydrated based on BUN. Headache worse since stopping ibuprofen. will increase ceftriaxone dose. per Dr. Oconnor recommendation if not improving, repeat CT (with contrast) as opposed to U/S. Renal infarction might look similar (hypodense areas in left kidney noted on contrast CT from [place]). Will check lupus anticoagulant and repeat CT with contrast today U/A yesterday shows + bacteria which was not present on admission Echo: 1. Normal echocardiogram-Doppler. 2. No vegetations. 3. Normal left ventricle internal dimensions and wall thickness. Normal regional LV wall motion and wall thickening. Normal LV systolic function. Left ventricular ejection fraction (LVEF) 65% by visual estimate. Normal LV diastolic function. (2) Headache Status: Acute Response to Treatment: Worse Problem Text: possible side effect of zofran. sleep impairment due to pyelo pa in another possibility as is toxic effect of her infection. will stop zofran, add meloxicam whose anti-inflammatory effect may help SPANGLER as well as renal pain. not contraindicated because there is no known vascular disease (no HTN, Dm, vasculitis) that the NSAID might worsen. will monitor for effect. if not working for SPANGLER then resume ibuprofen instead Plan/VTE VTE Prophylaxis Ordered?: Yes Plan Anticipated Discharge: Home VS, I&O, 24H, Fishbone Vital Signs/I&O Vital Signs Date Time Temp Pulse Resp B/P (MAP) Pulse Ox O2 Delivery O2 Flow Rate FiO2 12/27/18 06:00 97.7 71 16 105/63 (77) 98 I&O- Last 24 Hours up to 6 AM 12/27/18 06:00 Intake Total 1550 ml Output Total 1325 ml Balance 225 ml Laboratory Data 24H LABS Laboratory Tests 2 12/26/18 10:47: Urine Appearance CLOUDYH, Urine Color YELLOW, Urine pH 7.0, Urine Specific [place] 1.008, Urine Protein NEGATIVE, Urine Glucose (UA) NEGATIVE, Urine Ketones NEGATIVE, Urine Urobilinogen 0.2, Urine Bilirubin NEGATIVE, Urine Leukocyte Esterase 2+H, Urine Blood 3+H, Urine Nitrite NEGATIVE, Urine WBC (Auto) 12H, Urine RBC (Auto) 4H, Urine Hyaline Casts (Auto) 0, Urine Bacteria (Auto) 1+H, Urine Squamous Epithelial Cells 22, Urine Amorphous Sediment SMALLH, Urine Mucus (Auto) SMALL, Urine Sperm (Auto) 12/27/18 06:08: Nucleated Red Blood Cells % (auto) 0.0, Anion Gap 3L, Glomerular Filtration Rate > 60.0, Blood Urea Nitrogen 6L, Creatinine 0.78, Sodium Level 141, Potassium Level 3.9, Chloride Level 109H, Carbon Dioxide Level 29, Calcium Level 8.5, Aspartate Amino Transf (AST/SGOT) 11, Alanine Aminotransferase (ALT/SGPT) 16, Alkaline Phosphatase 50, Total Bilirubin 0.1L, Total Protein 6.6, Albumin 2.7L, C-Reactive Protein, Quantitative 3.14H, Albumin/Globulin Ratio 0.69L CBC/BMP Laboratory Tests 12/27/18 06:08 Red Blood Count 3.45 L, Mean Corpuscular Volume 90.4, Mean Corpuscular Hemoglobin 29.6, Mean Corpuscular Hemoglobin Concent 32.7, Red Cell Distribution Width 13.7, Calcium Level 8.5, Aspartate Amino Transf (AST/SGOT) 11, Alanine Aminotransferase (ALT/SGPT) 16, Alkaline Phosphatase 50, Total Bilirubin 0.1 L, Total Protein 6.6, Albumin 2.7 L Microbiology Microbiology 12/25/18 Urine Culture - Final, Complete PB DEUTSCH PA-C December 27, 2018 09:09
[2018-12-27] MEDS ORDERED: ISOVUE-370 76% 100ML VIAL (Q9967) As Ordered ONE (09:21)
--- NOTE | 2018-12-27 11:13 | REP ---
CT ABDOMEN AND PELVIS: CT urogram. HISTORY: Left nephritis versus infarct. Comparison renal sonography December 25, 2018. Comparison CT study December 20, 2018 and April 27, 2016. CT CONTRAST DOSE: 100 mL of intravenous Isovue [address] FINDINGS: Preliminary digital dipper operator radiograph is unremarkable. The lung bases are clear on axial CT images. There are small amounts of pleural fluid bilaterally posteriorly. The liver and the spleen are normal in size and homogeneous in texture. No adrenal lesion is seen on either side. The gallbladder shows no abnormality by CT. Pancreas is unremarkable. The right kidney is morphologically intact and enhances normally on pre- and postcontrast study. The left kidney demonstrates perinephric stranding. There is focally decreased contrast enhancement in the cortex of the left mid kidney anteriorly near the lower pole. There are two low density areas adjacent one another in the cortex. The largest of these measures 1.9 cm in greatest diameter. The smaller measures 1.1 cm in greatest diameter. The perinephric stranding is most pronounced adjacent to these in the anterior perinephric fat. These too low density collections could be small renal carbuncles. No hydronephrosis is seen on either side. No intrarenal calculus is observed. No ureteral stone is seen. Urinary bladder is unremarkable. Uterus is tipped to the right. No adnexal pathology is seen. No abdominal wall defect is observed. IMPRESSION: Findings compatible with left-sided pyelonephritis with a regional decrease in contrast enhancement in the lower pole of the left kidney and two low density areas surrounded by inflammation consistent with small renal carbuncles. The largest of these is 1.9 cm in greatest diameter. Electronically Signed by Jean Donald MD 12/27/2018 03:56 P
[2018-12-27] MEDS: cefTRIAXone SOD 2 GM in D5W MINI-BAG PLUS 50 ML IV SCH (12:12)
[2018-12-27 14:00] VITALS: BP 108/65
--- NOTE | 2018-12-27 15:02 | DSES ---
DATE OF ADMISSION: 12/25/2018 DATE OF DISCHARGE: SAme as date of dictation: 12/27/2018 The patient is to be transferred to [facility] to Dr. Knox. DISCHARGE DIAGNOSIS: Left renal abscesses, pyelonephritis. HISTORY: The patient admitted from Dr. Osuna's clinic with diagnosis of pyelonephritis on 12/25/2018 after a 5-day history of left flank pain, fevers and chills, not responding to Cipro and cefdinir. Outside imaging at [facility] had shown a low low-density area developing in her left kidney. Ultrasound on admission was negative. CT done today showed these low density areas were coalescing into two different areas that were consistent with abscesses in the opinion of Dr. Dell Oconnor, our urologist on duty, who saw the patient in consultation. The larger of these apparent renal abscesses is 1.9 cm; the small is 1.1 cm. The organism that was identified was E-coli sensitive to all antibiotics except ampicillin and ampicillin sulbactam. She was initially treated as an outpatient with fluoroquinolone and Cipro, changed to cefdinir when she seemed not to be improving and since admission here has been on ceftriaxone initially 1 gram every 24 hours and then increased to 2 grams every 24 hours. Pain control initially was facilitated with oxycodone but this proved to be really less effective than Ketorolac IV 30 mg, which was started today and even this agent only offers temporary partial relief of symptoms. She was started on levofloxacin yesterday for deep venous thrombosis (DVT) prophylaxis and this will now be stopped in anticipation of potential procedure later. Her last dose was administered this morning at 9:00 a.m. She has also received meloxicam, which was discontinued this morning when she was changed to Toradol 30 mg IV every 6 hours. Other medications include latanoprost for glaucoma, uses 1 drop both eyes at bedtime. Promethazine 25 mg q.8 h as needed for nausea has been prescribed, last dose was yesterday evening. Oxycodone 5-10 mg as needed pain. and Tylenol 650 as needed for pain/fever. DISCHARGE DIAGNOSES: Pyelonephritis with development of CT diagnosis of renal abscesses on the left kidney. History of glaucoma. History of recurrent episodes of pyelonephritis and cystitis. PLAN: The patient will be transferred to facility that has interventional radiology so nephrostomy drainage can be engaged. In the opinion of her urologist, Dr. Oconnor, these services are required to remedy this problem for her and does not think it will be adequately treated by IV antibiotics alone. Interventional radiology that is capable of providing and required service is not available at this facility. The patient was reviewed by telephone with Dr. Knox at [facility] who was reached through the [facility] transfer center. This dictation should accompany her along with images, burned to CT so that they may be reviewed in case there is trouble accessed through the [employer] information exchange. [id number]
[2018-12-29 00:06] LABS: ANA (HEP2) Negative (.); CYCLIC CITRULLINATED PEPTIDE 4 units (0-19); Lyme Disease IgG Ab 18 kDa Ban Absent (.); Lyme Disease IgG Ab 23 kDa Ban Absent (.); Lyme Disease IgG Ab 28 kDa Ban Absent (.); Lyme Disease IgG Ab 30 kDa Ban Absent (.); Lyme Disease IgG Ab 39 kDa Ban Absent (.); Lyme Disease IgG Ab 41 kDa Ban Absent (.); Lyme Disease IgG Ab 45 kDa Ban Absent (.); Lyme Disease IgG Ab 58 kDa Ban Absent (.); Lyme Disease IgG Ab 66 kDa Ban Absent (.); Lyme Disease IgG Ab 93 kDa Ban Absent (.); Lyme Disease IgG West Blot Int Negative (.); Lyme Disease IgG/IgM Antibodie <0.91 ISR (0.00-0.90); Lyme Disease IgM Ab 23 kDa Ban Present (.); Lyme Disease IgM Ab 39 kDa Ban Present (.); Lyme Disease IgM Ab 41 kDa Ban Absent (.); Lyme Disease IgM Ab Quantitati 1.57 index (0.00-0.79); Lyme Disease IgM West Blot Int Positive (.)
== END 2018-12-27 17:00 | disposition other institution (70) | DRG 690 ==
LOC: M MS5PR 11:05
PROVIDERS: ADMIT Family Medicine; ATTEND Family Medicine
DX: N10 Acute pyelonephritis (principal); Z79.899 Other long term (current) drug therapy

== ENCOUNTER → 2019-06-18 | Outpatient (REF) | payer OTHER ==
[~2019-06-18] MED LIST changes: +CEFD1CAP8 PO; +HYDR-3713 PO
[2019-06-18 16:42] LABS: BASO # 0.1 10^3/uL (0.0-0.2); EOS # 0.4 10^3/uL (0.0-0.5); EOS % 3.8 % (0.0-3.0); HEMATOCRIT 37.8 % (36.0-47.0); HEMOGLOBIN 12.1 g/dl (12.0-15.5); LYMPH # 4.1 10^3/uL (1.5-5.0); LYMPH % 44.7 % (24.0-44.0); MEAN CORPUSCULAR HEMOGLOBIN 28.8 pg (27.0-33.0); MONO # 0.6 10^3/uL (0.0-0.8); MONO % 6.9 % (0.0-5.0); NEUTROPHILS % 43.4 % (36.0-66.0); PLATELET COUNT, AUTOMATED 293 10^3/uL (150-450); WHITE BLOOD COUNT 9.1 10^3/uL (4.0-10.0)
[2019-06-18 16:47] LABS: HCG, SERUM QUALITATIVE NEGATIVE (NEGATIVE)
[2019-06-18 16:48] LABS: ALT/SGPT 19 U/L (12-78); BILIRUBIN,TOTAL 0.2 MG/DL (0.2-1.0); BLOOD UREA NITROGEN 14 MG/DL (7-18); CALCIUM LEVEL 9.7 MG/DL (8.5-10.1); CARBON DIOXIDE LEVEL 29 MEQ/L (21-32); CHLORIDE LEVEL 107 MEQ/L (98-107); CREATININE FOR GFR 0.95 MG/DL (0.55-1.30); GLOMERULAR FILTRATION RATE > 60.0 (>60); GLUCOSE, FASTING 83 MG/DL (70-100); POTASSIUM SERUM 4.3 MEQ/L (3.5-5.1); SODIUM LEVEL 142 MEQ/L (136-145); TOTAL PROTEIN 8.1 GM/DL (6.4-8.2)
[2019-06-18 17:52] LABS: AMORPHOUS SEDIMENT MODERATE (NEGATIVE); APPEARANCE, URINE CLEAR (CLEAR); BACTERIA, URINE AUTO NEGATIVE (NEGATIVE); BILIRUBIN, URINE AUTO NEGATIVE (NEGATIVE); BLOOD, URINE BLOOD 3+ (NEGATIVE); COLOR, URINE YELLOW (YELLOW); GLUCOSE, URINE (UA) AUTO NEGATIVE (NEGATIVE); KETONE, URINE AUTO NEGATIVE (NEGATIVE); LEUKOCYTE ESTERASE, URINE AUTO NEGATIVE (NEGATIVE); MUCUS, URINE SMALL (NEGATIVE); NITRITE, URINE AUTO NEGATIVE (NEGATIVE); PROTEIN, URINE AUTO NEGATIVE (NEGATIVE); RBC, URINE AUTO 1 /HPF (0-3); SPECIFIC GRAVITY URINE AUTO 1.021 (1.002-1.035); SQUAMOUS EPITHELIAL CELL UR AU 3 /HPF (0-6); UROBILINOGEN, URINE AUTO 0.2 mg/dL (0.0-2.0); WBC, URINE AUTO 4 /HPF (0-3)
== END ==
LOC: M SFHCADAM 14:14
PROVIDERS: ATTEND Family Medicine
DX: R50.9 Fever, unspecified (principal); Z87.440 Personal history of urinary (tract) infections; R55 Syncope and collapse; A69.20 Lyme disease, unspecified

== ENCOUNTER → 2019-07-03 | Outpatient (REF) | payer OTHER ==
[2019-07-03 16:24] LABS: APPEARANCE, URINE HAZY (CLEAR); BACTERIA, URINE AUTO 1+ (NEGATIVE); BILIRUBIN, URINE AUTO NEGATIVE (NEGATIVE); BLOOD, URINE BLOOD NEGATIVE (NEGATIVE); COLOR, URINE YELLOW (YELLOW); GLUCOSE, URINE (UA) AUTO NEGATIVE (NEGATIVE); KETONE, URINE AUTO NEGATIVE (NEGATIVE); LEUKOCYTE ESTERASE, URINE AUTO NEGATIVE (NEGATIVE); NITRITE, URINE AUTO NEGATIVE (NEGATIVE); PROTEIN, URINE AUTO NEGATIVE (NEGATIVE); RBC, URINE AUTO 0 /HPF (0-3); SQUAMOUS EPITHELIAL CELL UR AU 3 /HPF (0-6); UROBILINOGEN, URINE AUTO 0.2 mg/dL (0.0-2.0); WBC, URINE AUTO 3 /HPF (0-3)
== END ==
LOC: M SFHCADAM 14:56
PROVIDERS: ATTEND Family Medicine
DX: R35.0 Frequency of micturition (principal)

== ENCOUNTER → 2020-03-07 | Outpatient (REF) | payer OTHER | LOC: M LAB REF 11:42 | PROVIDERS: ATTEND Physician Assistant | DX: R30.0 Dysuria (principal) ==

== ENCOUNTER → 2020-04-08 | Outpatient (REF) | payer OTHER ==
[2020-04-08 18:11] LABS: C REACTIVE PROTEIN QUANTITATIV < 0.30 MG/DL (0.00-0.30); FREE T4 0.77 NG/DL (0.76-1.46); RHEUMATOID FACTOR QUANT < 10.0 IU/ML (<15.0)
[2020-04-12 15:39] LABS: Lyme Disease IgG Ab 18 kDa Ban Absent (.); Lyme Disease IgG Ab 23 kDa Ban Absent (.); Lyme Disease IgG Ab 28 kDa Ban Absent (.); Lyme Disease IgG Ab 30 kDa Ban Absent (.); Lyme Disease IgG Ab 39 kDa Ban Absent (.); Lyme Disease IgG Ab 41 kDa Ban Absent (.); Lyme Disease IgG Ab 45 kDa Ban Absent (.); Lyme Disease IgG Ab 58 kDa Ban Absent (.); Lyme Disease IgG Ab 66 kDa Ban Absent (.); Lyme Disease IgG Ab 93 kDa Ban Absent (.); Lyme Disease IgG West Blot Int Negative (.); Lyme Disease IgG/IgM Antibodie <0.91 ISR (0.00-0.90); Lyme Disease IgM Ab 23 kDa Ban Present (.); Lyme Disease IgM Ab 39 kDa Ban Absent (.); Lyme Disease IgM Ab 41 kDa Ban Absent (.); Lyme Disease IgM Ab Quantitati 1.49 index (0.00-0.79); Lyme Disease IgM West Blot Int Negative (.)
== END ==
LOC: M LABDRWAD 13:20
PROVIDERS: ATTEND Family Medicine
DX: F41.9 Anxiety disorder, unspecified (principal); M25.40 Effusion, unspecified joint

== ENCOUNTER → 2020-09-02 | Outpatient (REF) | payer OTHER ==
[2020-09-02 18:52] LABS: APPEARANCE, URINE CLOUDY (CLEAR); BACTERIA, URINE AUTO NEGATIVE (NEGATIVE); BILIRUBIN, URINE AUTO NEGATIVE (NEGATIVE); BLOOD, URINE BLOOD 1+ (NEGATIVE); COLOR, URINE AMBER (YELLOW); GLUCOSE, URINE (UA) AUTO NEGATIVE (NEGATIVE); KETONE, URINE AUTO TRACE mg/dL (NEGATIVE); LEUKOCYTE ESTERASE, URINE AUTO 3+ (NEGATIVE); NITRITE, URINE AUTO NEGATIVE (NEGATIVE); PROTEIN, URINE AUTO 1+ mg/dL (NEGATIVE); RBC, URINE AUTO 11 /HPF (0-3); SPECIFIC GRAVITY URINE AUTO 1.019 (1.002-1.035); SQUAMOUS EPITHELIAL CELL UR AU 24 /HPF (0-6); UROBILINOGEN, URINE AUTO 0.2 mg/dL (0.0-2.0); WBC, URINE AUTO 77 /HPF (0-3)
== END ==
LOC: M LAB REF 16:10
PROVIDERS: ATTEND Urology
DX: R31.0 Gross hematuria (principal); R10.9 Unspecified abdominal pain

== ENCOUNTER → 2020-12-17 | Outpatient (REF) | payer OTHER ==
[2020-12-17 17:21] LABS: AMORPHOUS SEDIMENT MODERATE (NEGATIVE); APPEARANCE, URINE TURBID (CLEAR); BACTERIA, URINE AUTO NEGATIVE (NEGATIVE); BILIRUBIN, URINE AUTO NEGATIVE (NEGATIVE); BLOOD, URINE BLOOD NEGATIVE (NEGATIVE); COLOR, URINE YELLOW (YELLOW); GLUCOSE, URINE (UA) AUTO NEGATIVE (NEGATIVE); KETONE, URINE AUTO NEGATIVE (NEGATIVE); LEUKOCYTE ESTERASE, URINE AUTO TRACE (NEGATIVE); MUCUS, URINE SMALL (NEGATIVE); NITRITE, URINE AUTO NEGATIVE (NEGATIVE); PROTEIN, URINE AUTO NEGATIVE (NEGATIVE); RBC, URINE AUTO 0 /HPF (0-3); SPECIFIC GRAVITY URINE AUTO 1.019 (1.002-1.035); SQUAMOUS EPITHELIAL CELL UR AU 5 /HPF (0-6); WBC, URINE AUTO 2 /HPF (0-3)
== END ==
LOC: M LAB REF 16:31
PROVIDERS: ATTEND Urology
DX: N39.0 Urinary tract infection, site not specified (principal)

== ENCOUNTER → 2021-02-23 | Outpatient (REF) | payer OTHER ==
[2021-02-23 12:33] LABS: BASO # 0.1 10^3/uL (0.0-0.2); BASO % 0.8 % (0.0-1.0); EOS # 0.1 10^3/uL (0.0-0.5); EOS % 1.6 % (0.0-3.0); HEMATOCRIT 39.2 % (36.0-47.0); LYMPH # 2.7 10^3/uL (1.5-5.0); LYMPH % 37.2 % (24.0-44.0); MEAN CORPUSCULAR HEMOGLOBIN 29.3 pg (27.0-33.0); MEAN CORPUSCULAR HGB CONC 33.2 g/dl (32.0-36.5); MEAN CORPUSCULAR VOLUME 88.5 fl (80.0-96.0); MONO # 0.6 10^3/uL (0.0-0.8); MONO % 8.3 % (2.0-8.0); NEUTROPHILS # 3.8 10^3/uL (1.5-8.5); NEUTROPHILS % 51.8 % (36.0-66.0); PLATELET COUNT, AUTOMATED 279 10^3/uL (150-450); RED BLOOD COUNT 4.43 10^6/uL (4.00-5.40); WHITE BLOOD COUNT 7.3 10^3/uL (4.0-10.0)
[2021-02-23 12:45] LABS: INR 0.99; PROTHROMBIN TIME 13.3 SECONDS (12.5-14.3)
[2021-02-23 12:46] LABS: PARTIAL THROMBOPLASTIN TIME 32.4 SECONDS (24.2-38.5)
[2021-02-23 13:04] LABS: HCG, SERUM QUALITATIVE NEGATIVE (NEGATIVE)
[2021-02-23 13:13] LABS: ALT/SGPT 17 U/L (12-78); BILIRUBIN,TOTAL 0.5 MG/DL (0.2-1.0); BLOOD UREA NITROGEN 14 MG/DL (7-18); CARBON DIOXIDE LEVEL 26 MEQ/L (21-32); CHLORIDE LEVEL 108 MEQ/L (98-107); CREATININE FOR GFR 0.89 MG/DL (0.55-1.30); GLOMERULAR FILTRATION RATE > 60.0 (>60); GLUCOSE, FASTING 79 MG/DL (70-100); POTASSIUM SERUM 4.5 MEQ/L (3.5-5.1); SODIUM LEVEL 137 MEQ/L (136-145); TOTAL PROTEIN 7.8 GM/DL (6.4-8.2)
== END ==
LOC: M SFHCADAM 10:01
PROVIDERS: ATTEND Family Medicine
DX: Z00.00 Encounter for general adult medical examination without abnormal findings (principal); N92.6 Irregular menstruation, unspecified; R23.8 Other skin changes

== ENCOUNTER → 2022-04-14 | Outpatient (CLI) | payer OTHER ==
[~2022-04-14] MED LIST changes: -CEFD1CAP8 PO; +CEFD300C41 PO; +RITA5TAB PO; +VYVA30CA4 PO
== END ==
LOC: M RAD 10:25
PROVIDERS: ATTEND Physician Assistant Surgical
DX: S83.91XD Sprain of unspecified site of right knee, subsequent encounter (principal)
CPT/HCPCS: 78315; A9503

== ENCOUNTER → 2022-06-28 | Outpatient (REF) | payer MEDICAID | LOC: M SFHCADAM 16:07 | PROVIDERS: ATTEND Family Medicine | DX: N92.6 Irregular menstruation, unspecified (principal); N97.9 Female infertility, unspecified ==

== ENCOUNTER → 2022-08-28 | Outpatient (CLI) | payer OTHER | LOC: M PLAIMG 08:13 | PROVIDERS: ATTEND Physician Assistant Surgical | DX: M46.1 Sacroiliitis, not elsewhere classified (principal); N85.4 Malposition of uterus ==

== ENCOUNTER → 2022-10-13 | Outpatient (REF) | payer OTHER ==
[2022-10-13 16:15] LABS: BASO # 0.1 10^3/uL (0.0-0.2); BASO % 1.1 % (0.0-1.0); EOS # 0.2 10^3/uL (0.0-0.5); EOS % 1.9 % (0.0-3.0); HEMATOCRIT 34.8 % (36.0-47.0); HEMOGLOBIN 11.6 g/dl (12.0-15.5); LYMPH # 3.6 10^3/uL (1.5-5.0); LYMPH % 40.1 % (24.0-44.0); MEAN CORPUSCULAR HEMOGLOBIN 29.3 pg (27.0-33.0); MEAN CORPUSCULAR HGB CONC 33.3 g/dl (32.0-36.5); MEAN CORPUSCULAR VOLUME 87.9 fl (80.0-96.0); MONO # 0.8 10^3/uL (0.0-0.8); MONO % 8.6 % (2.0-8.0); NEUTROPHILS # 4.3 10^3/uL (1.5-8.5); NEUTROPHILS % 48.1 % (36.0-66.0); PLATELET COUNT, AUTOMATED 273 10^3/uL (150-450); RED BLOOD COUNT 3.96 10^6/uL (4.00-5.40); WHITE BLOOD COUNT 8.9 10^3/uL (4.0-10.0)
[2022-10-13 18:21] LABS: ALBUMIN 3.7 G/DL (3.2-5.2); ALKALINE PHOSPHATASE 44 U/L (46-116); ALT/SGPT 11 U/L (7.0-40); AST/SGOT 14 U/L (<34); BILIRUBIN,TOTAL 0.5 MG/DL (0.3-1.2); BLOOD UREA NITROGEN 14 MG/DL (9-23); CALCIUM LEVEL 8.9 MG/DL (8.5-10.1); CARBON DIOXIDE LEVEL 25 MMOL/L (20-31); CHLORIDE LEVEL 105 MMOL/L (98-107); CREATININE FOR GFR 0.97 MG/DL (0.55-1.30); FREE T4 0.98 NG/DL (0.89-1.76); GLOMERULAR FILTRATION RATE > 60.0 (>60); GLUCOSE, FASTING 79 MG/DL (60-100); HCG, SERUM QUANTITATIVE < 2.6 MIU/ML (<4.2); POTASSIUM SERUM 3.7 MMOL/L (3.5-5.1); SODIUM LEVEL 138 MMOL/L (136-145); THYROID STIMULATING HORMONE 0.978 uIU/ML (0.55-4.78); TOTAL 25(OH) VITAMIN D 24.9 NG/ML (20.0-100.0); TOTAL PROTEIN 6.8 G/DL (5.7-8.2)
== END ==
LOC: M SFHCADAM 14:56
PROVIDERS: ATTEND Physician Assistant
DX: N91.1 Secondary amenorrhea (principal)

== ENCOUNTER → 2022-11-08 | Outpatient (CLI) | payer OTHER | LOC: M WHC 09:35 | PROVIDERS: ATTEND Physician Assistant | DX: N91.1 Secondary amenorrhea (principal); N83.202 Unspecified ovarian cyst, left side ==

== ENCOUNTER 2024-05-29 11:00 | Emergency (ER) | payer OTHER ==
[~2024-05-29] VITALS: Ht 157.5 cm; Wt 59.8 kg
[~2024-05-29 11:00] MED LIST changes: +CEFD1CAP9 PO; -CEFD300C41 PO; +ONDA-282 PO; -ONDA4TAB6 PO
[2024-05-29] MEDS ORDERED: IBUP200T46 PO (11:07)
[2024-05-29] MEDS: ACETAMINOPHEN 500 MG TAB PO ONE (13:17)
[2024-05-29] MEDS: diazePAM 5MG TABLET PO ONE (13:18)
[2024-05-29] MEDS: LIDOCAINE 5% (LIDODERM) PATCH TD ONE (13:18)
[2024-05-29 14:43] LABS: HCG, SERUM QUALITATIVE NEGATIVE (NEGATIVE)
[2024-05-29] MEDS: KETOROLAC 30 MG/ML 1ML VIAL IM ONE (15:41)
[2024-05-29] MEDS: PERCOCET 5MG/325MG TAB PO ONE (16:10)
[2024-05-29] MEDS ORDERED: OXYC-517 PO (16:37)
[2024-05-29] MEDS ORDERED: LIDO5DIS41 TD (16:41)
[2024-05-29 16:44] VITALS: BP 105/60; TEMP 98.5; O2SAT 98
== END 2024-05-29 16:47 | disposition home or self-care (01) ==
LOC: M ED 11:00
DX: M51.26 Other intervertebral disc displacement, lumbar region (principal); F90.9 Attention-deficit hyperactivity disorder, unspecified type; N73.9 Female pelvic inflammatory disease, unspecified; Z79.1 Long term (current) use of non-steroidal anti-inflammatories (NSAID); Z79.899 Other long term (current) drug therapy
CPT/HCPCS: 72148; 84703; 96372; 99283; J1885

== ENCOUNTER 2024-11-26 08:21 | Emergency (ER) | payer OTHER, SELFPAY ==
[~2024-11-26] VITALS: Ht 157.5 cm; Wt 59.8 kg
[~2024-11-26 08:21] MED LIST changes: +IBUP200T46 PO; +LIDO5DIS41 TD; +OXYC-517 PO
[2024-11-26] MEDS: MAGIC MOUTHWASH 5ML ORAL SYRINGE SS ONE (09:00)
[2024-11-26] MEDS ORDERED: MAGICMW SSP (09:21)
[2024-11-26 09:28] VITALS: BP 109/71; TEMP 97.3; O2SAT 98
== END 2024-11-26 09:30 | disposition home or self-care (01) ==
LOC: M ED 08:21
DX: K13.70 Unspecified lesions of oral mucosa (principal); Z79.899 Other long term (current) drug therapy